=== PATIENT | female | born 1960 | race Caucasian/White ===

== ENCOUNTER 2020-05-30 05:32 | Emergency (ER) | payer MEDICARE, SELFPAY ==
--- NOTE | 2020-05-30 05:43 | ED_ITS ---
HPI - General Adult <Montana Hart DO - Last Filed: 05/31/20 07:07> General Chief complaint: Psychiatric Symptoms Stated complaint: psych Time Seen by Provider: 05/30/20 05:39 Source: patient and EMS Mode of arrival: EMS Limitations: altered mental status History of Present Illness HPI narrative: 59-year-old female who arrived by EMS. Most of the patient's past medical history/HPI was obtained by 1 prior note from earlier this month. Apparently the patient has a diagnosis of schizophrenia. Also has had issues with sodium in the past secondary to polydipsia. According to a prior note from an initial visit with a primary provider patient was recently discharged from [facility] on May 26. Unknown how long the patient had been at this facility. According to this note patient was originally from the local area however has been living in [place]. Unsure how the patient arrived from [facility] here in the local area. Patient has been staying at a [facility] hotel. She called EMS this morning initially for what was reported as a fall and hip pain. When EMS arrived they stated that the patient was an obvious distress. Was very tangential in her speaking. Patient stated that she did not fall but that she was sleeping on the floor. Another point she stated that she did fall. She has been standing and walking. Patient is unable to provide any HPI or review of systems. She did give a phone number for her brother. She gave the name Rajan and a phone number [phone]. Unsure if patient is taking any medications. Related Data Home Medications Medication Instructions Recorded Confirmed Aishawryatherm 1 1 tab PO DAILY tab 05/28/20 05/28/20 billion cell-250 mg tablet acetaminophen 650 mg 650 mg PO Q8H 05/28/20 05/28/20 tablet,extended release ascorbic acid (vitamin C) 500 mg mg PO 05/28/20 05/28/20 capsule chlorhexidine gluconate 0.12 % 15 ml BUCCAL BID 05/28/20 05/28/20 mouthwash fluphenazine decanoate 25 mg/mL 50 mg IM Q4W 05/28/20 05/28/20 injection solution lorazepam 1 mg tablet 1 mg PO Q6H PRN tab 05/28/20 05/28/20 losartan 50 mg tablet 50 mg PO DAILY 05/28/20 05/28/20 sodium chloride 0.65 % nasal spray 1 spray NASAL BID ml 05/28/20 05/28/20 aerosol Allergies Allergy/AdvReac Type Severity Reaction Status Date / Time haloperidol [From Haldol] Allergy Severe Parkinson's Verified 05/30/20 05:44 syndrome, muscle spasms lithium Allergy Severe hives Verified 05/30/20 05:44 niacin Allergy Severe itching,hiv Verified 05/30/20 05:44 es,photosen sitivity pineapple Allergy Severe SOB Verified 05/30/20 05:44 Sulfa (Sulfonamide Allergy Severe SOB, Verified 05/30/20 05:44 Antibiotics) itching Tetracyclines Allergy Severe rash, Verified 05/30/20 05:44 itching vitamin E (d-alpha Allergy Severe edema, rash Verified 05/30/20 05:44 tocopherol) latex Allergy Intermediate dermatitis Verified 05/30/20 05:44 Review of Systems <Montana Hart DO - Last Filed: 05/31/20 07:07> Review of Systems ROS Unobtainable: Unobtainable due to mental condition Patient History <Montana Hart DO - Last Filed: 05/31/20 07:07> Medical History Hyponatremia (Acute) Polydipsia (Acute) Schizophrenia (Acute) Social History Smoking Status: Former smoker Smoking Status: Former smoker Exam <Montana Hart DO - Last Filed: 05/31/20 07:07> Initial Vital Signs Initial Vital Signs: Vital Signs Temperature 98.7 F 05/30/20 07:50 Pulse Rate 106 H 05/30/20 07:50 Respiratory Rate 19 05/30/20 07:50 Blood Pressure 157/92 H 05/30/20 07:50 Pulse Oximetry 98 05/30/20 07:50 Const General: No cooperative and disheveled Limitations: altered mental status and behavioral limitations HENMT Head: normal to inspection and normocephalic Resp Effort & Inspection: normal respiratory effort Skin Other: Bruise along right hip Extrem Other: Bruise along right hip however patient able to move all 4 extremities spontaneously and stand and walk. Psych Appearance: disheveled Speech and Movement: agitated, pressured speech and restless Mood: anxious mood and paranoid Affect: animated, anxious affect and euphoric affect Attitude: refuses to answer Thought Process: flight of ideas and tangential Judgment: poor <Asa Pérez MD - Last Filed: 05/31/20 17:24> Initial Vital Signs Initial Vital Signs: Vital Signs Temperature 98.7 F 05/30/20 07:50 Pulse Rate 106 H 05/30/20 07:50 Respiratory Rate 19 05/30/20 07:50 Blood Pressure 157/92 H 05/30/20 07:50 Pulse Oximetry 98 05/30/20 07:50 Course <Montana Hart DO - Last Filed: 05/31/20 07:07> Orders Ordered: ED Orders 05/31/20 11:05 Basic Metabolic Panel Stat 05/31/20 11:44 XR hip w pel if done BILAT 2V Stat Discontinued Medications Acetaminophen (Tylenol) 650 mg PO NOW ONE Stop: 05/31/20 12:00 Last Admin: 05/31/20 12:39 Dose: 650 mg Documented by: SHARIFA Diphenhydramine HCl (Benadryl) 50 mg IM NOW ONE Stop: 05/30/20 13:18 Last Admin: 05/30/20 13:27 Dose: 50 mg Documented by: OSKAR Ibuprofen (Advil) 400 mg PO NOW ONE Stop: 05/31/20 11:56 Last Admin: 05/31/20 12:40 Dose: 400 mg Documented by: SHARIFA Lorazepam (Ativan) 2 mg PO NOW ONE Stop: 05/30/20 11:29 Last Admin: 05/30/20 11:32 Dose: Not Given Documented by: OSKAR Lorazepam (Ativan) 2 mg PO NOW ONE Stop: 05/31/20 15:30 Last Admin: 05/31/20 15:34 Dose: 2 mg Documented by: ANGELIKA Olanzapine (Zyprexa Zydis) 10 mg PO NOW ONE Stop: 05/30/20 05:42 Last Admin: 05/30/20 05:58 Dose: Not Given Documented by: IVONNE Olanzapine (Zyprexa Zydis) 20 mg PO NOW ONE Stop: 05/30/20 05:48 Last Admin: 05/30/20 05:58 Dose: 20 mg Documented by: IVONNE Olanzapine (Zyprexa Zydis) 20 mg PO NOW ONE Stop: 05/30/20 11:45 Last Admin: 05/30/20 13:24 Dose: Not Given Documented by: OSKAR Olanzapine (Zyprexa) 10 mg IM NOW ONE Stop: 05/30/20 13:17 Last Admin: 05/30/20 13:27 Dose: 10 mg Documented by: OSKAR Vital Signs Vital signs: Vital Signs - 8 hr 05/31/20 11:57 Pulse Rate 96 H Respiratory Rate 18 Blood Pressure 108/70 Pulse Oximetry 100 <Asa Pérez MD - Last Filed: 05/31/20 17:24> Course Course Narrative: CHANGE OF SHIFT SIGN OUT: Dr. Hart provided sign out history at :0715. Her history is as noted. The patient has been recently discharged from [facility] in [facility] just outside [place]. She was discharged on Monday according to her brother Rajan. According to him she has schizophrenia. She has had multiple admissions to [facility]. She has been in voluntarily admitted multiple times because she is incapable of taking care of herself and has been a threat to others as well as to herself. She will not eat thinking that her food is poisoned she is extremely paranoid. He does not know much about her medical history. He is willing to come into the hospital and me with the quality engineer medical device. However, if she sees him she will become very belligerent and angry. The phone number to [facility] switchboard is [phone]. The patient was discharged from [place] to obtain housing in [place] at [facility]. 0841: The nurse's obtained blood on the patient. Laboratory orders were placed by Dr. Hart. The patient is awake and talking to the nursing staff. She will not let anyone touch her or examine her. Her brother states that she is extremely paranoid at times. 1145: Patient is up and walking about and has become agitated. She was offered 2 mg of Ativan. She is very paranoid about any medications that she has been given she was given 20 mg of side proxy a per Dr. Feliberto Lemon which seem to calm her down. It has been reordered for her. At this time we are waiting for mental health evaluation by the director of social media marketing. Orders Ordered: ED Orders 05/31/20 11:05 Basic Metabolic Panel Stat 05/31/20 11:44 XR hip w pel if done BILAT 2V Stat Discontinued Medications Acetaminophen (Tylenol) 650 mg PO NOW ONE Stop: 05/31/20 12:00 Last Admin: 05/31/20 12:39 Dose: 650 mg Documented by: SHARIFA Diphenhydramine HCl (Benadryl) 50 mg IM NOW ONE Stop: 05/30/20 13:18 Last Admin: 05/30/20 13:27 Dose: 50 mg Documented by: OSKAR Ibuprofen (Advil) 400 mg PO NOW ONE Stop: 05/31/20 11:56 Last Admin: 05/31/20 12:40 Dose: 400 mg Documented by: SHARIFA Lorazepam (Ativan) 2 mg PO NOW ONE Stop: 05/30/20 11:29 Last Admin: 05/30/20 11:32 Dose: Not Given Documented by: OSKAR Lorazepam (Ativan) 2 mg PO NOW ONE Stop: 05/31/20 15:30 Last Admin: 05/31/20 15:34 Dose: 2 mg Documented by: ANGELIKA Olanzapine (Zyprexa Zydis) 10 mg PO NOW ONE Stop: 05/30/20 05:42 Last Admin: 05/30/20 05:58 Dose: Not Given Documented by: IVONNE Olanzapine (Zyprexa Zydis) 20 mg PO NOW ONE Stop: 05/30/20 05:48 Last Admin: 05/30/20 05:58 Dose: 20 mg Documented by: IVONNE Olanzapine (Zyprexa Zydis) 20 mg PO NOW ONE Stop: 05/30/20 11:45 Last Admin: 05/30/20 13:24 Dose: Not Given Documented by: OSKAR Olanzapine (Zyprexa) 10 mg IM NOW ONE Stop: 05/30/20 13:17 Last Admin: 05/30/20 13:27 Dose: 10 mg Documented by: OSKAR Vital Signs Vital signs: Vital Signs - 8 hr 05/31/20 11:57 Pulse Rate 96 H Respiratory Rate 18 Blood Pressure 108/70 Pulse Oximetry 100 Medical Decision Making <Montana Hart DO - Last Filed: 05/31/20 07:07> Lab Data Result diagrams: 05/30/20 08:00 05/31/20 11:05 Labs: Lab Results 05/30/20 05/30/20 05/30/20 Range/Units 06:35 06:35 08:00 WBC 9.6 (4.5-11.0) X10^3/uL RBC 4.17 (4.0-5.2) X10^6/uL Hgb 12.6 (12.0-16.0) g/dL Hct 36.7 (36-46) % MCV 88.1 (80-100) fL MCH 30.2 (26-34) PG MCHC 34.3 (30-36) % RDW 13.1 (11.6-14.8) % Plt Count 336 (150-400) X10^3/uL Neut % (Auto) 69.0 (50-75) % Lymph % (Auto) 19.0 L (25-40) % Atkinson % (Auto) 11.6 (3-14) % Eos % (Auto) 0.1 L (2-4) % Baso % (Auto) 0.3 (0-2) % Neut # (Auto) 6600 (1205-8204) /uL Lymph # (Auto) 1800 (9020-2958) /uL Atkinson # (Auto) 1100 H (0-900) /uL Eos # (Auto) 0 (0-450) /uL Baso # (Auto) 0 (0-100) /uL Sodium (137-145) mmol/L Potassium (3.4-5.1) mmol/L Chloride (98-107) mmol/L Carbon Dioxide (22-32) mmol/L BUN (7-17) mg/dL Creatinine (0.52-1.04) mg/dL Estimated GFR (>60) mL/min BUN/Creatinine Ratio (6-22) Glucose (70-100) mg/dL Calcium (8.4-10.2) mg/dL Total Bilirubin (0.2-1.3) mg/dL AST (14-36) IU/L ALT (<35) IU/L Alkaline Phosphatase (38-126) U/L Ammonia (9-30) umol/L Total Protein (6.3-8.2) g/dL Albumin (3.5-5.0) g/dL Globulin (1.7-4.1) g/dL Albumin/Globulin Ratio (1.0-2.8) Lipase (23-300) U/L TSH (0.47-4.68) uIU/mL Urine Color Yellow Urine Appearance Clear Urine pH 7.0 (4.5-8.0) Ur Specific [place] <=1.005 (1.000-1.035) Urine Protein Negative (Negative) Urine Glucose (UA) Negative (Negative) g/dL Urine Ketones Negative (NEGATIVE) Urine Occult Blood 1+ H (Negative) Urine Nitrate Negative (Negative) Urine Bilirubin Negative (NEGATIVE) Urine Urobilinogen 0.2 (0.2) E.U./dL Ur Leukocyte Esterase Negative (NEGATIVE) Urine RBC None seen (0-5/HPF) Urine WBC None seen (0-5/HPF) Urine Bacteria None seen (None) Ur Culture Indicated? Cult not indicated U Opiates 300ng/mL cut Negative (Negative) Ur Oxycodone Screen Negative (Negative) Urine Methadone Screen Negative (Negative) Acetaminophen (10-30) ug/mL Ur Barbiturates Screen Negative (Negative) U Tricyclic Antidepress Negative (Negative) Ur Phencyclidine Scrn Negative (Negative) Ur Amphetamines Screen Negative (Negative) U Methamphetamines Scrn Negative (Negative) Ur MDMA Scrn (Ecstasy) Negative (Negative) U Benzodiazepines Scrn Negative (Negative) Urine Cocaine Screen Negative (Negative) U Marijuana (THC) Screen Negative (Negative) Ethyl Alcohol ( - 10) mg/dL 05/30/20 05/30/20 05/30/20 Range/Units 08:00 08:00 08:00 WBC (4.5-11.0) X10^3/uL RBC (4.0-5.2) X10^6/uL Hgb (12.0-16.0) g/dL Hct (36-46) % MCV (80-100) fL MCH (26-34) PG MCHC (30-36) % RDW (11.6-14.8) % Plt Count (150-400) X10^3/uL Neut % (Auto) (50-75) % Lymph % (Auto) (25-40) % Atkinson % (Auto) (3-14) % Eos % (Auto) (2-4) % Baso % (Auto) (0-2) % Neut # (Auto) (0421-5097) /uL Lymph # (Auto) (3357-7268) /uL Atkinson # (Auto) (0-900) /uL Eos # (Auto) (0-450) /uL Baso # (Auto) (0-100) /uL Sodium 126 L (137-145) mmol/L Potassium 3.1 L (3.4-5.1) mmol/L Chloride 89 L (98-107) mmol/L Carbon Dioxide 25 (22-32) mmol/L BUN 6 L (7-17) mg/dL Creatinine 0.46 L (0.52-1.04) mg/dL Estimated GFR > 60.0 (>60) mL/min BUN/Creatinine Ratio 13.0 (6-22) Glucose 134 H (70-100) mg/dL Calcium 9.7 (8.4-10.2) mg/dL Total Bilirubin 1.5 H (0.2-1.3) mg/dL AST 46 H (14-36) IU/L ALT 26 (<35) IU/L Alkaline Phosphatase 76 (38-126) U/L Ammonia < 9 L (9-30) umol/L Total Protein 7.8 (6.3-8.2) g/dL Albumin 5.0 (3.5-5.0) g/dL Globulin 2.8 (1.7-4.1) g/dL Albumin/Globulin Ratio 1.8 (1.0-2.8) Lipase 43 (23-300) U/L TSH (0.47-4.68) uIU/mL Urine Color Urine Appearance Urine pH (4.5-8.0) Ur Specific [place] (1.000-1.035) Urine Protein (Negative) Urine Glucose (UA) (Negative) g/dL Urine Ketones (NEGATIVE) Urine Occult Blood (Negative) Urine Nitrate (Negative) Urine Bilirubin (NEGATIVE) Urine Urobilinogen (0.2) E.U./dL Ur Leukocyte Esterase (NEGATIVE) Urine RBC (0-5/HPF) Urine WBC (0-5/HPF) Urine Bacteria (None) Ur Culture Indicated? U Opiates 300ng/mL cut (Negative) Ur Oxycodone Screen (Negative) Urine Methadone Screen (Negative) Acetaminophen < 10 L (10-30) ug/mL Ur Barbiturates Screen (Negative) U Tricyclic Antidepress (Negative) Ur Phencyclidine Scrn (Negative) Ur Amphetamines Screen (Negative) U Methamphetamines Scrn (Negative) Ur MDMA Scrn (Ecstasy) (Negative) U Benzodiazepines Scrn (Negative) Urine Cocaine Screen (Negative) U Marijuana (THC) Screen (Negative) Ethyl Alcohol < 10 ( - 10) mg/dL 05/30/20 05/31/20 Range/Units 08:00 11:05 WBC (4.5-11.0) X10^3/uL RBC (4.0-5.2) X10^6/uL Hgb (12.0-16.0) g/dL Hct (36-46) % MCV (80-100) fL MCH (26-34) PG MCHC (30-36) % RDW (11.6-14.8) % Plt Count (150-400) X10^3/uL Neut % (Auto) (50-75) % Lymph % (Auto) (25-40) % Atkinson % (Auto) (3-14) % Eos % (Auto) (2-4) % Baso % (Auto) (0-2) % Neut # (Auto) (8974-7515) /uL Lymph # (Auto) (8556-7774) /uL Atkinson # (Auto) (0-900) /uL Eos # (Auto) (0-450) /uL Baso # (Auto) (0-100) /uL Sodium 130 L (137-145) mmol/L Potassium 3.9 (3.4-5.1) mmol/L Chloride 93 L (98-107) mmol/L Carbon Dioxide 30 (22-32) mmol/L BUN 6 L (7-17) mg/dL Creatinine 0.51 L (0.52-1.04) mg/dL Estimated GFR > 60.0 (>60) mL/min BUN/Creatinine Ratio 11.8 (6-22) Glucose 107 H (70-100) mg/dL Calcium 9.7 (8.4-10.2) mg/dL Total Bilirubin (0.2-1.3) mg/dL AST (14-36) IU/L ALT (<35) IU/L Alkaline Phosphatase (38-126) U/L Ammonia (9-30) umol/L Total Protein (6.3-8.2) g/dL Albumin (3.5-5.0) g/dL Globulin (1.7-4.1) g/dL Albumin/Globulin Ratio (1.0-2.8) Lipase (23-300) U/L TSH 0.460 L (0.47-4.68) uIU/mL Urine Color Urine Appearance Urine pH (4.5-8.0) Ur Specific [place] (1.000-1.035) Urine Protein (Negative) Urine Glucose (UA) (Negative) g/dL Urine Ketones (NEGATIVE) Urine Occult Blood (Negative) Urine Nitrate (Negative) Urine Bilirubin (NEGATIVE) Urine Urobilinogen (0.2) E.U./dL Ur Leukocyte Esterase (NEGATIVE) Urine RBC (0-5/HPF) Urine WBC (0-5/HPF) Urine Bacteria (None) Ur Culture Indicated? U Opiates 300ng/mL cut (Negative) Ur Oxycodone Screen (Negative) Urine Methadone Screen (Negative) Acetaminophen (10-30) ug/mL Ur Barbiturates Screen (Negative) U Tricyclic Antidepress (Negative) Ur Phencyclidine Scrn (Negative) Ur Amphetamines Screen (Negative) U Methamphetamines Scrn (Negative) Ur MDMA Scrn (Ecstasy) (Negative) U Benzodiazepines Scrn (Negative) Urine Cocaine Screen (Negative) U Marijuana (THC) Screen (Negative) Ethyl Alcohol ( - 10) mg/dL MDM Narrative Medical decision making narrative: EMS reported that they were able to bring her here without much issue but she did become somewhat agitated and restless in the ambulance. Patient provided minimal medical history. She was very back and fo rth on answers. Initially stated that she would take medicine and then stated that she went. Stated that the bed that she was on was too high but then would not sit on a mattress on the floor stating that she would not be able to get back up. She asked multiple times for water to drink. Patient stated that she did not want anyone to touch her. She would not allow me to perform a physical exam. Attempted to contact Rajan at the phone number that the patient provided and did leave a message at approximately 0550 in the morning. Patient did take Zyprexa orally after saying that she would take the medication. Patient is in obvious distress. She stated that she did not know where she was. Stated that she did not know what year it was. My opinion she does not have the capacity to make decisions. We did contact [facility] for any medical records. Labs ordered however we will wait for the patient to calm down from the Zyprexa before attempting to draw any blood. According to a primary providers note just recently patient has had hyponatremia secondary to polydipsia so we will limit the amount of water that the patient drinks. Care turned over to Dr Pérez at change of shift Dr Hart overnight shift 05/30-05/31 shift. Patient has been stable all night. Was evaluated by DCR who agrees that patient hot to be detained however there were no beds available. Patient has no laboratory test pending. Care turned over to day provider to continue to follow up with disposition. <Asa Pérez MD - Last Filed: 05/31/20 17:24> Lab Data Labs: Lab Results 05/30/20 05/30/20 05/30/20 Range/Units 06:35 06:35 08:00 WBC 9.6 (4.5-11.0) X10^3/uL RBC 4.17 (4.0-5.2) X10^6/uL Hgb 12.6 (12.0-16.0) g/dL Hct 36.7 (36-46) % MCV 88.1 (80-100) fL MCH 30.2 (26-34) PG MCHC 34.3 (30-36) % RDW 13.1 (11.6-14.8) % Plt Count 336 (150-400) X10^3/uL Neut % (Auto) 69.0 (50-75) % Lymph % (Auto) 19.0 L (25-40) % Atkinson % (Auto) 11.6 (3-14) % Eos % (Auto) 0.1 L (2-4) % Baso % (Auto) 0.3 (0-2) % Neut # (Auto) 6600 (7974-1091) /uL Lymph # (Auto) 1800 (2717-0911) /uL Atkinson # (Auto) 1100 H (0-900) /uL Eos # (Auto) 0 (0-450) /uL Baso # (Auto) 0 (0-100) /uL Sodium (137-145) mmol/L Potassium (3.4-5.1) mmol/L Chloride (98-107) mmol/L Carbon Dioxide (22-32) mmol/L BUN (7-17) mg/dL Creatinine (0.52-1.04) mg/dL Estimated GFR (>60) mL/min BUN/Creatinine Ratio (6-22) Glucose (70-100) mg/dL Calcium (8.4-10.2) mg/dL Total Bilirubin (0.2-1.3) mg/dL AST (14-36) IU/L ALT (<35) IU/L Alkaline Phosphatase (38-126) U/L Ammonia (9-30) umol/L Total Protein (6.3-8.2) g/dL Albumin (3.5-5.0) g/dL Globulin (1.7-4.1) g/dL Albumin/Globulin Ratio (1.0-2.8) Lipase (23-300) U/L TSH (0.47-4.68) uIU/mL Urine Color Yellow Urine Appearance Clear Urine pH 7.0 (4.5-8.0) Ur Specific [place] <=1.005 (1.000-1.035) Urine Protein Negative (Negative) Urine Glucose (UA) Negative (Negative) g/dL Urine Ketones Negative (NEGATIVE) Urine Occult Blood 1+ H (Negative) Urine Nitrate Negative (Negative) Urine Bilirubin Negative (NEGATIVE) Urine Urobilinogen 0.2 (0.2) E.U./dL Ur Leukocyte Esterase Negative (NEGATIVE) Urine RBC None seen (0-5/HPF) Urine WBC None seen (0-5/HPF) Urine Bacteria None seen (None) Ur Culture Indicated? Cult not indicated U Opiates 300ng/mL cut Negative (Negative) Ur Oxycodone Screen Negative (Negative) Urine Methadone Screen Negative (Negative) Acetaminophen (10-30) ug/mL Ur Barbiturates Screen Negative (Negative) U Tricyclic Antidepress Negative (Negative) Ur Phencyclidine Scrn Negative (Negative) Ur Amphetamines Screen Negative (Negative) U Methamphetamines Scrn Negative (Negative) Ur MDMA Scrn (Ecstasy) Negative (Negative) U Benzodiazepines Scrn Negative (Negative) Urine Cocaine Screen Negative (Negative) U Marijuana (THC) Screen Negative (Negative) Ethyl Alcohol ( - 10) mg/dL 07/04/20 07/04/20 07/04/20 Range/Units 08:00 08:00 08:00 WBC (4.5-11.0) X10^3/uL RBC (4.0-5.2) X10^6/uL Hgb (12.0-16.0) g/dL Hct (36-46) % MCV (80-100) fL MCH (26-34) PG MCHC (30-36) % RDW (11.6-14.8) % Plt Count (150-400) X10^3/uL Neut % (Auto) (50-75) % Lymph % (Auto) (25-40) % Atkinson % (Auto) (3-14) % Eos % (Auto) (2-4) % Baso % (Auto) (0-2) % Neut # (Auto) (2235-1259) /uL Lymph # (Auto) (5464-2191) /uL [place]kinson # (Auto) (0-900) /uL Eos # (Auto) (0-450) /uL Baso # (Auto) (0-100) /uL Sodium 126 L (137-145) mmol/L Potassium 3.1 L (3.4-5.1) mmol/L Chloride 89 L (98-107) mmol/L Carbon Dioxide 25 (22-32) mmol/L BUN 6 L (7-17) mg/dL Creatinine 0.46 L (0.52-1.04) mg/dL Estimated GFR > 60.0 (>60) mL/min BUN/Creatinine Ratio 13.0 (6-22) Glucose 134 H (70-100) mg/dL Calcium 9.7 (8.4-10.2) mg/dL Total Bilirubin 1.5 H (0.2-1.3) mg/dL AST 46 H (14-36) IU/L ALT 26 (<35) IU/L Alkaline Phosphatase 76 (38-126) U/L Ammonia < 9 L (9-30) umol/L Total Protein 7.8 (6.3-8.2) g/dL Albumin 5.0 (3.5-5.0) g/dL Globulin 2.8 (1.7-4.1) g/dL Albumin/Globulin Ratio 1.8 (1.0-2.8) Lipase 43 (23-300) U/L TSH (0.47-4.68) uIU/mL Urine Color Urine Appearance Urine pH (4.5-8.0) Ur Specific [place] (1.000-1.035) Urine Protein (Negative) Urine Glucose (UA) (Negative) g/dL Urine Ketones (NEGATIVE) Urine Occult Blood (Negative) Urine Nitrate (Negative) Urine Bilirubin (NEGATIVE) Urine Urobilinogen (0.2) E.U./dL Ur Leukocyte Esterase (NEGATIVE) Urine RBC (0-5/HPF) Urine WBC (0-5/HPF) Urine Bacteria (None) Ur Culture Indicated? U Opiates 300ng/mL cut (Negative) Ur Oxycodone Screen (Negative) Urine Methadone Screen (Negative) Acetaminophen < 10 L (10-30) ug/mL Ur Barbiturates Screen (Negative) U Tricyclic Antidepress (Negative) Ur Phencyclidine Scrn (Negative) Ur Amphetamines Screen (Negative) U Methamphetamines Scrn (Negative) Ur MDMA Scrn (Ecstasy) (Negative) U Benzodiazepines Scrn (Negative) Urine Cocaine Screen (Negative) U Marijuana (THC) Screen (Negative) Ethyl Alcohol < 10 ( - 10) mg/dL 05/30/20 05/31/20 Range/Units 08:00 11:05 WBC (4.5-11.0) X10^3/uL RBC (4.0-5.2) X10^6/uL Hgb (12.0-16.0) g/dL Hct (36-46) % MCV (80-100) fL MCH (26-34) PG MCHC (30-36) % RDW (11.6-14.8) % Plt Count (150-400) X10^3/uL Neut % (Auto) (50-75) % Lymph % (Auto) (25-40) % [place]kinson % (Auto) (3-14) % Eos % (Auto) (2-4) % Baso % (Auto) (0-2) % Neut # (Auto) (6086-6075) /uL Lymph # (Auto) (5312-5980) /uL [place]kinson # (Auto) (0-900) /uL Eos # (Auto) (0-450) /uL Baso # (Auto) (0-100) /uL Sodium 130 L (137-145) mmol/L Potassium 3.9 (3.4-5.1) mmol/L Chloride 93 L (98-107) mmol/L Carbon Dioxide 30 (22-32) mmol/L BUN 6 L (7-17) mg/dL Creatinine 0.51 L (0.52-1.04) mg/dL Estimated GFR > 60.0 (>60) mL/min BUN/Creatinine Ratio 11.8 (6-22) Glucose 107 H (70-100) mg/dL Calcium 9.7 (8.4-10.2) mg/dL Total Bilirubin (0.2-1.3) mg/dL AST (14-36) IU/L ALT (<35) IU/L Alkaline Phosphatase (38-126) U/L Ammonia (9-30) umol/L Total Protein (6.3-8.2) g/dL Albumin (3.5-5.0) g/dL Globulin (1.7-4.1) g/dL Albumin/Globulin Ratio (1.0-2.8) Lipase (23-300) U/L TSH 0.460 L (0.47-4.68) uIU/mL Urine Color Urine Appearance Urine pH (4.5-8.0) Ur Specific [place] (1.000-1.035) Urine Protein (Negative) Urine Glucose (UA) (Negative) g/dL Urine Ketones (NEGATIVE) Urine Occult Blood (Negative) Urine Nitrate (Negative) Urine Bilirubin (NEGATIVE) Urine Urobilinogen (0.2) E.U./dL Ur Leukocyte Esterase (NEGATIVE) Urine RBC (0-5/HPF) Urine WBC (0-5/HPF) Urine Bacteria (None) Ur Culture Indicated? U Opiates 300ng/mL cut (Negative) Ur Oxycodone Screen (Negative) Urine Methadone Screen (Negative) Acetaminophen (10-30) ug/mL Ur Barbiturates Screen (Negative) U Tricyclic Antidepress (Negative) Ur Phencyclidine Scrn (Negative) Ur Amphetamines Screen (Negative) U Methamphetamines Scrn (Negative) Ur MDMA Scrn (Ecstasy) (Negative) U Benzodiazepines Scrn (Negative) Urine Cocaine Screen (Negative) U Marijuana (THC) Screen (Negative) Ethyl Alcohol ( - 10) mg/dL Discharge Plan Departure Patient Disposition: Xf Psychiatric Hosp Clinical Impression: Acute psychosis, Chronic schizophrenia, Psychogenic polydipsia, Dilutional hyponatremia Discharge Date/Time: 05/31/20 15:41 <Asa Pérez MD - Last Filed: 05/31/20 17:24> Cosign ED Attending Cosignature Attestation: [id number]: According to MÓNICA Mcgee, [facility] is most likely going to take the patient as soon as a bed becomes available. They are requesting that we draw a repeat BMP to check her sodium. At the change of shift earlier today at 7:[address] Hart provided me with report. The patient has become more cooperative. 1155: The patient's repeat basic metabolic panel revealed a sodium of 130 a potassium of 3.9 a chloride of 93 a CO2 of 30 a BUN of 6 a creatinine of 0.51 and EGFR greater than 60 a glucose of 107 a calcium of 9.7 At this same time the patient was cooperative and with nurse Migdalia the patient allowed me to touch her and perform an examination. The patient was awake and alert what she was sitting having her vitals checked she was mildly tremulous. She is very vigilant. PHYSICAL EXAM: CONSTITUTIONAL: Awake, Alert, very vigilant, moving around standing in the room. HEAD: AT/NC EENT: PERRL, FROM of eyes, no discharge, no nystagmus NOSE:No epistaxis or nasal drainage MOUTH:Oral mucosa is moist and pink, posterior pharynx is without erythema or exudate. The patient has bite garcia with white scarring on the right buccal mucosa which may represent a formal leukoplakia or just scarring from biting. NECK: Supple, no obvious JVD, Trachea is midline without stridor, no palpable LN. SPINE: Palpation of the cervical, Thoracic, Lumbar or Sacral spine reveals no gross deformity or tenderness. No CVA tenderness. THORAX: No deformity, retractions, chest wall tenderness. LUNGS: Clear, symmetrical breath sounds without respiratory distress. HEART: Normal heart tones, regular rhythm and rate without murmur. ABDOMEN: Soft, non-tender, without guarding, rebound, rigidity or palpable mass. EXTREMITIES: No edema, deformity, tenderness or cyanosis. The patient has bruising over her right posterior hip. She is tender in this area on palpation however there is no palpable bony deformity. NEURO: Awake, alert, vigilant, pressured speech, no focal facial asymmetry, cranial nerves II-XII are symmetrical , moves all 4 extremities and is ambulatory.
--- NOTE | 2020-05-30 05:57 | PC.NURSE ---
Pt arrived to ER with EMS pt states that she can't have anything touching her. Pt is paranoid and paces. Pt states that the bed was too high. I placed a matress on the floor for pt and pt states that is too low. There is a chair in the room that the patient will sit in. Pt refuses to have any vital signs and does not want anyone to touch her. Pt repeats herself.
[2020-05-30] MEDS: OLANZapine ODT 10 MG TAB 20 MG PO (05:58)
[2020-05-30 06:39] LABS: Bacteria Urine None Seen; RBC Urine None Seen (0-5/HPF); WBC Urine None Seen (0-5/HPF)
[2020-05-30 06:41] LABS: Appearance Urine UA CLEAR; Bilirubin Urine UA NEGATIVE (NEGATIVE); Color Urine UA YELLOW; Glucose Urine UA NEGATIVE (Negative); Ketones Urine UA NEGATIVE (NEGATIVE); Leukocyte Esterase Urine UA NEGATIVE (NEGATIVE); Nitrite Urine UA NEGATIVE (Negative); Occult Blood Urine UA 1+ (Negative); Protein Urine UA NEGATIVE (Negative); Specific Gravity Urine UA <=1.005 (1.000-1.035); Urobilinogen Urine UA 0.2 E.U./dL (0.2)
[2020-05-30 06:47] LABS: UR Morphine/Opiate cutoff 300 Negative (Negative); Ur Creatinine 10 (Normal); Ur Specific Gravity 1.015 (Normal); Urine Amphetamines Negative (Negative); Urine Barbiturates Negative (Negative); Urine Benzodiazepines Negative (Negative); Urine Cocaine Negative (Negative); Urine MDMA Negative (Negative); Urine Methadone Negative (Negative); Urine Methamphetamines Negative (Negative); Urine Oxycodone Negative (Negative); Urine Phencyclidine Negative (Negative); Urine Tetrahydrocannabinol Negative (Negative); Urine Tricyclic Antidepressant Negative (Negative); Urine pH 5 (Normal)
[2020-05-30 06:49] LABS: Culture Indicated Urine Cult Not Indicated
--- NOTE | 2020-05-30 07:09 | PC.NURSE ---
Nikkie on Pt 1:1 @ 0700. Pt is on Mattress on the floor.
--- NOTE | 2020-05-30 07:18 | PC.NURSE ---
Pt has a bruise on the right hip, it is unclear what happened
--- NOTE | 2020-05-30 07:22 | PC.NURSE ---
Pt requests the birds stop chirping outside.
[2020-05-30 07:50] VITALS: BP 157/92; PULSE 106; RESP 19; TEMP 37.1; O2SAT 98
--- NOTE | 2020-05-30 08:00 | PC.NURSE ---
Pt allowed vitals and blood to be drawn after a lot of persuasion. Water provided after blood draw and vitals
[2020-05-30 08:12] LABS: Add Manual Diff / Slide Review NO; Basophils Absolute Auto 0 /uL (0-100); Basophils Percent Auto 0.3 % (0-2); Eosinophils Absolute Auto 0 /uL (0-450); Eosinophils Percent Auto 0.1 % (2-4); Hematocrit 36.7 % (36-46); Hemoglobin 12.6 g/dL (12.0-16.0); Lymphocytes Absolute Auto 1800 /uL (1100-4500); Mean Corpuscular HGB Conc 34.3 % (30-36); Mean Corpuscular Hemoglobin 30.2 PG (26-34); Mean Corpuscular Volume 88.1 fL (80-100); Monocytes Absolute Auto 1100 /uL (0-900); Monocytes Percent Auto 11.6 % (3-14); Neutrophils Absolute Auto 6600 /uL (1500-7000); Platelet Count 336 X10^3/uL (150-400); Red Blood Cell Count 4.17 X10^6/uL (4.0-5.2); Red Cell Distribution Width 13.1 % (11.6-14.8); White Blood Cell Count 9.6 X10^3/uL (4.5-11.0)
[2020-05-30 08:19] LABS: Acetaminophen < 10 ug/mL (10-30); Alanine Aminotransferase 26 IU/L (<35); Albumin Globulin Ratio 1.8 (1.0-2.8); Alkaline Phosphatase 76 U/L (38-126); Aspartate Aminotransferase 46 IU/L (14-36); Bilirubin Total 1.5 mg/dL (0.2-1.3); Blood Urea Nitrogen 6 mg/dL (7-17); Calcium 9.7 mg/dL (8.4-10.2); Carbon Dioxide 25 mmol/L (22-32); Chloride 89 mmol/L (98-107); Estimated Glomerular Filt Rate > 60.0 mL/min (>60); Globulin 2.8 g/dL (1.7-4.1); Glucose 134 mg/dL (70-100); HEMOLYSIS < 15 (0-50); Potassium 3.1 mmol/L (3.4-5.1); Sodium 126 mmol/L (137-145); Total Protein 7.8 g/dL (6.3-8.2)
[2020-05-30 08:20] LABS: Ammonia (NH3) < 9 umol/L (9-30); Ethanol (ETOH) < 10 mg/dL; Lipase 43 U/L (23-300)
--- NOTE | 2020-05-30 08:25 | PC.NURSE ---
at 0745 lab called to draw lab. Patient not wanting to be touched. Had to convince her to get the blood drawn. Took 15 minutes of talking patient into it. Patient has problems with people touching her, has flight of ideas, nonsensical ideas, blankets and people with gloves are too warm. Blood drawn, vital signs taken with much convincing. breakfast ordered
--- NOTE | 2020-05-30 08:30 | PC.NURSE ---
Pt keeps counting the seconds on her watch documenting the amount of time she has been talking or how long others have been talking.
--- NOTE | 2020-05-30 09:31 | PC.NURSE ---
Pt is contemplating how to eat her food without making her fingers oily. Pt continues to count the number of items that make up her breakfast. Pt is having a difficult committing to eating her breakfast
--- NOTE | 2020-05-30 09:53 | PC.NURSE ---
Pt walking back and forth to and from door, still having difficulty trying to figure out how to eat her breakfast
--- NOTE | 2020-05-30 10:23 | PC.NURSE ---
called the DCR and faxed information to them. They will get back to us, after they receive it.
[2020-05-30] MEDS: LORazepam 0.5 MG TABLET 2 MG PO (11:32)
--- NOTE | 2020-05-30 12:06 | PC.NURSE ---
Trying to get Pt to take Medication requested by Pt, Pt is not able to stay focused enough to take medication
--- NOTE | 2020-05-30 12:08 | PC.NURSE ---
Pt threw Medication in Trash
--- NOTE | 2020-05-30 12:10 | PC.NURSE ---
patient asking for ativan so ativan ordered and went to give pills to patient She would not believe that they were ativan showed her the packages and worked with her for 45minuites to get her to take the meds. She then threw them into the garbage. NOt given Spoke with DCR earlier at 3855 and Phoebe Chambers will be contacting [facility] in [place] and we faxed her the information from here.
--- NOTE | 2020-05-30 12:51 | PC.NURSE ---
CLERICAL CAR CHECKER speaking with Pt
--- NOTE | 2020-05-30 12:55 | CM.SWNOTE ---
DISTRIBUTION SUPERINTENDENT note DISTRIBUTION SUPERINTENDENT consult requested for patient. Patient is a 59 y/o female who presents to ED via EMS. EMS reports that patient called 911 for a fall, but [facility], they observered that patient was in distress and transported to ED. When DISTRIBUTION SUPERINTENDENT arrived for shift, DCR had already been dispatched. DISTRIBUTION SUPERINTENDENT calls DCR Phoebe at [phone]. Phoebe reports that patient has hx of schizophrenia and has was released from [facility] 5 days ago. Phoebe reports that she has been to [facility] numerous times over past 20 years. Per Phoebe, patient's baseline is reluctantly med complaint and she experiences paranoia and delusions at baseline. Phoebe informs that [facility] had made a plan for patient to come to [place] to stay with a friend after discharge, but that no specifics were noted in the discharge plan. Phoebe states she is seeking inpatient placement for patient, but notes that today being a holiday and the patient's higher acuity may make it difficult to secure placement today. Patient is currently on a LRO. Phoebe and DISTRIBUTION SUPERINTENDENT discuss next steps. Phoebe and DISTRIBUTION SUPERINTENDENT agree it is best for DISTRIBUTION SUPERINTENDENT to attempt assessment with patient to see if there's any possibility of outpatient plan and follow up with Phoebe. Phoebe will continue to seek placement for patient. DISTRIBUTION SUPERINTENDENT attempts assessment with patient. DISTRIBUTION SUPERINTENDENT introduces self to patient from outside of room. Patient does not appear to be completely oriented to person, place, or time. Patient's conversation was tangential, thought process had flight of ideas, paranoia, and impairment of attention and concentration. Patient escalated throughout brief assessment, and then stated Stop engaging me! and DISTRIBUTION SUPERINTENDENT exits conversation. DISTRIBUTION SUPERINTENDENT calls Phoebe to discuss. DISTRIBUTION SUPERINTENDENT explains that, at this point, it is the opinion of this DISTRIBUTION SUPERINTENDENT that patient is not safe for outpatient d/c plan. Phoebe indicates agreement and informs DISTRIBUTION SUPERINTENDENT that she will continue calling hospitals. Pl: DISTRIBUTION SUPERINTENDENT and DCR will coordinate to secure inpatient placement for patient. MÓNICA Kunz
[2020-05-30] MEDS: OLANZapine 10 MG VIAL IM (13:27)
[2020-05-30] MEDS: diphenhydrAMINE 50 MG/ML VIAL IM (13:27)
--- NOTE | 2020-05-30 13:36 | PC.NURSE ---
Pt now in isolation with door locked and meds administered
--- NOTE | 2020-05-30 13:54 | PC.NURSE ---
Patient is refusing to sit on the mattress in her room. I told her if she sits calmly I will come in and bring her some juice as she is c/o her mouth being dry. Patient states Why do your lips look like that? What are you trying to do? and asking who the doctor is that is in charge of the .
--- NOTE | 2020-05-30 14:21 | PC.NURSE ---
at 1320 went into room with 4 people and each person took an extremity and gently laid patient on the mat. She was escalating and upset not eating, not sleeping, ( possibly not sleeping for 2 days .) medicated with IM ( earlier refused to take po meds ) medication. Retraint order placed by kayce. ADOLESCENT SPECIALIST speaking with DCR and looking for placement.
[2020-05-30 16:00] VITALS: BP 126/78; PULSE 96; RESP 20; TEMP 36.8; O2SAT 98
--- NOTE | 2020-05-30 18:43 | PC.NURSE ---
since patient has been out of seclusion, She has been calm, talking to herself but not as anxious and demanding as before. drinking juice and ensure and then ate some of a cookie and chips. COMPUTER INSTALLATION ENGINEER states that the DCR will be here at 8pm to work on placement.
--- NOTE | 2020-05-30 20:24 | PC.NURSE ---
MANAGER BAKERY: Pt is standing at doorway talking to herself.
--- NOTE | 2020-05-30 20:25 | PC.NURSE ---
HALL CLEANER: pt is sitting near door quietly.
--- NOTE | 2020-05-30 20:35 | PC.NURSE ---
SALES PROGRAM COORDINATOR: pt is sitting in a chair near the door talking.
--- NOTE | 2020-05-30 21:07 | PC.NURSE ---
MARKET DEVELOPMENT ANALYST note: Pt has had a pack of chocolate chip cookies and a bag of chips on this shift. I have given her two cans of Lashell Keyla and two chocolate ensures.
--- NOTE | 2020-05-30 22:12 | PC.NURSE ---
CONFIDENTIAL SECRETARY note: I provided wet wash clothes to patient to wash her feet and this kept her occupied. She agreed to put nonskid socks on. She sllowed me to tie her gown properly. Pt is calmly sitting down, still fiddling with the socks. She states they hurt her feet terribly.
--- NOTE | 2020-05-31 08:41 | PC.NURSE ---
[facility] contacted per HARNESS BRUSHER request. Advised by Akil that they will continue to look for placement and ask that HARNESS BRUSHER do the same. Recieved a call from [facility] in [place] stating they recieved a referral for placement. Provided number for MÓNICA Islas.
--- NOTE | 2020-05-31 08:59 | CM.SWNOTE ---
Addendum entered by MÓNICA Kelly 05/31/20 12:27: ADD: Faxed updated sodium levels that show an upward trend from 126 to 130 to Emmy at [facility] and Emmy confirms that their Physician Dr. Garner has accepted pt for [address] [place] [address]. Emmy will call the DCR to gather additional DCR pwk needed and would prefer pt to transport as early as can be arranged. ALBERT called [facility] and confirmed that DCR covering today is [facility] and they are now aware that [facility] is the accepting facility and Von will contact [facility] D[facility] right now with update and request she fax the signed transportation pwk to the ER fax number and provided the ER phone number as a contact. ALBERT updated RN and MD who will continue setting up transportation for pt today. ALBERT called pt's brother Rajan [phone] and updated on above and he is very agreeable with plan and feels [place] might be the best place for the pt as she has been established with multiple providers there in the very recent past. Rajan plans to call their Uncle who lives in [place] to confirm which critical access hospital pt was staying at so that Rajan can drive down from [place] to pick pulling machine tender any of patient's belongings if needed. Plan: [facility] [place] [facility] and family aware and agreeable. BF Addendum entered by MÓNICA Kelly 05/31/20 11:15: ADD: Return call from Emmy at [facility] and she confirms that pt was reviewed by their Physician and only concern is pt's Sodium levels and requesting draw to confirm her sodium levels continue to improve as 05/30/20 was last sodium level. If pt shows improvement and no decline in Sodium then they can accept pt at their facility. ALBERT updated MD who agrees to place order for blood draw although pt has not been very agreeable with staff touching her or drawing labs but they will attempt and order placed. BF Addendum entered by MÓNICA Kelly 05/31/20 09:18: ADD: CATHETERIZATION LABORATORY TECHNICIAN called [facility] intake and currently they state they do not have an acute [facility] bed available at this time. If pt less acute, then can call [facility] back to determine if they have an opening. BF Original Note: Involuntary Placement CATHETERIZATION LABORATORY TECHNICIAN Consult order placed yesterday due to pt's MH dx and concern for her safety in the community. CATHETERIZATION LABORATORY TECHNICIAN yesterday unable to fully complete bedside assessment due to pt's agitation and inability to participate in goal directed discussion. DCR Angel[facility] was dispatched and confirmed that pt meets criteria for [facility] and actively attempted Involuntary MH placement for patient and no available bed secured last night and was a Walk Away and pt remains in ED 13 overnight and still present this morning 05/31/20. CATHETERIZATION LABORATORY TECHNICIAN requested RN call [facility] this morning to initiate process of DCR attempting Involuntary Placement again today. CATHETERIZATION LABORATORY TECHNICIAN received a call from Emmy at [facility] ([phone]) requesting CATHETERIZATION LABORATORY TECHNICIAN fax the DCR detainment pwk to their fax [phone] to review and determine if they are willing to complete further review for placement and no further clinicals requested at this time. Per [facility] DCR, majority of [facility] facilities are either full or not accepting out of replaced by [facility]. Although [facility] [place], [facility] [place] may have an opening today. Plan: CATHETERIZATION LABORATORY TECHNICIAN to continue to follow towards assisting DCR and RN with coordinating Involuntary MH Placement and [facility] review towards possible placement at their facility. MÓNICA Kelly
--- NOTE | 2020-05-31 09:10 | PC.NURSE ---
Patel Heredia on 1:1 @2799. Pt is currently lying on mattress eyes closed chest rising and falling
--- NOTE | 2020-05-31 09:32 | PC.NURSE ---
Pt sleeping in room, door is open. No seclusion / restraint indicated. Easy work of breathing. [place] / warm and dry. Continues to take oral fluids (jaymie gage / Juice) when awake.
--- NOTE | 2020-05-31 09:37 | PC.NURSE ---
Continues to have 1:1 observation for redirection and patient safety.
--- NOTE | 2020-05-31 10:19 | PC.NURSE ---
Spoke w/ Emmy of [facility] [place], [place]. ([phone]). She completed intake with me, will discuss w/ provider and call back.
--- NOTE | 2020-05-31 11:01 | PC.NURSE ---
Nurse and Lab are in Rm to draw blood sample
--- NOTE | 2020-05-31 11:16 | PC.NURSE ---
Pt woken by this nurse for lab draw. Pt woke w/ clear speech, disoriented to time, place. Reoriented and verbalized surprise she had been here for > 24 hours. c/o discomfort in right hip I fell into a piece of furniture. Bearing weight, full range of motion. Cooperated w/ lab draw. Continues to refuse to wear name band but able to give name and date of . Continues to perseverate on socks, how she got to ED, medications given. Performed ADLS, changed gown.
[2020-05-31 11:29] LABS: BUN Creatinine Ratio 11.8 (6-22); Blood Urea Nitrogen 6 mg/dL (7-17); Calcium 9.7 mg/dL (8.4-10.2); Carbon Dioxide 30 mmol/L (22-32); Chloride 93 mmol/L (98-107); Estimated Glomerular Filt Rate > 60.0 mL/min (>60); Glucose 107 mg/dL (70-100); HEMOLYSIS 29 (0-50); Potassium 3.9 mmol/L (3.4-5.1); Sodium 130 mmol/L (137-145)
--- NOTE | 2020-05-31 11:43 | PC.NURSE ---
Oral care provided and used by Pt. Bathroom used. Meal provided and Fresh gown/ linens provided. 240 ml fluids (juice) provided
--- NOTE | 2020-05-31 11:44 | DI.RAD.S_ITS ---
PROCEDURE: XR HIP W PEL IF DONE BILAT 2V INDICATIONS: c/o hip pain after falling into furniture. TECHNIQUE: AP pelvis with lateral view(s) of the bilateral hip(s). COMPARISON: None. FINDINGS: Bones: No fractures or dislocations. Remote ORIF of left hip with 3 cannulated screws. No evidence of avascular necrosis. No evidence of hardware failure or loosening. Mild bilateral hip degenerative change. Pelvic ring appears intact. No suspicious bony lesions. Soft tissues: The visualized bowel gas pattern is normal. No suspicious soft tissue calcifications. IMPRESSION: Mild bilateral hip degenerative change. No evidence acute bony abnormality of the pelvis and bilateral hips. If clinical suspicion and/or symptoms persist, further assessment with repeat plain films, or advanced imaging (e.g., CT, MRI, or bone scan) may be helpful for further assessment. Dictated by: Raghu Goode M.D. on 05/31/2020 at 11:37 Approved by: Raghu Goode M.D. on 05/31/2020 at 11:39
[2020-05-31 11:57] VITALS: BP 108/70; PULSE 96; RESP 18; O2SAT 100
--- NOTE | 2020-05-31 12:00 | PC.NURSE ---
Pt is eating
--- NOTE | 2020-05-31 12:17 | PC.NURSE ---
Pt has been accepted to [facility], [address], [place] [address]. Accept[address] provider is Dr. Garner Unit = [facility]. Emmy = contact,
--- NOTE | 2020-05-31 12:28 | PC.NURSE ---
Pt to ambulate to radiology with blood bank technician
--- NOTE | 2020-05-31 12:31 | PC.NURSE ---
Pt has returned from radiology, sitting on chair in doorway
[2020-05-31] MEDS: ACETAMINOPHEN 325 MG TABLET 650 MG PO (12:39)
[2020-05-31] MEDS: IBUPROFEN 400 MG TABLET PO (12:40)
--- NOTE | 2020-05-31 12:43 | PC.NURSE ---
800 ml fluid provided
--- NOTE | 2020-05-31 12:45 | PC.NURSE ---
Pt request from Nurse for paper and writing utensil to take notes about events at ED for her memory. Request granted
--- NOTE | 2020-05-31 13:06 | PC.NURSE ---
Pt documenting visit for her memory, standing at bedside table
--- NOTE | 2020-05-31 13:31 | PC.NURSE ---
Pt becoming agitated with taking self notes about her timeline in the ED, Pt becomes agitated if she does not like the answers provided for her questions. She is standing at bedside table continuing writing notes
--- NOTE | 2020-05-31 14:45 | PC.NURSE ---
210ml fluid (jaymie gage)
--- NOTE | 2020-05-31 15:27 | PC.NURSE ---
[facility] has arrived to transport pt to [facility]
[2020-05-31] MEDS: LORazepam 0.5 MG TABLET 2 MG PO (15:34)
--- NOTE | 2020-05-31 15:37 | PC.NURSE ---
Pt loaded on stretcher for transport
== END 2020-05-31 15:41 ==
PROVIDERS: Emergency Medicine; Emergency Provider Emergency Medicine
DX: F20.9 Schizophrenia, unspecified (principal); R63.1 Polydipsia; E87.1 Hypo-osmolality and hyponatremia; M25.552 Pain in left hip; M25.551 Pain in right hip; W19.XXXA Unspecified fall, initial encounter
CPT/HCPCS: 36415; 73521; 80048; 80053; 80305; 80320; 80329; 81001; 82140; 83690; 84443; 85025; 96372; 99285; G0480; J1200; S0166